=== PATIENT | female | born 1985 | race Caucasian/White ===

== ENCOUNTER 2018-03-22 15:31 | Emergency (ER) | payer OTHER ==
[2018-03-22 17:10] VITALS: PULSE 76; RESP 18; TEMP 99.4
--- NOTE | 2018-03-22 18:27 | ED ---
General Adult HPI - General Chief complaint: ENT Stated complaint: Headache, Congestion, Nauseated, Anxiety Time Seen by Provider: 03/22/18 17:49 Source: patient, RN notes reviewed Mode of arrival: ambulatory Limitations: no limitations - History of Present Illness Initial comments: 32-year-old female presents to the emergency department for a chief complaint of headache 2 days. Patient states she fell twice hitting her head on a wall and a bed rail in the past 2 days. Patient denies dizziness before these falls. Patient denies loss of consciousness after these falls. Patient also complains of nasal congestion for the past 3 years. Patient states she also has left- sided ear pressure which accompanies the congestion. Patient also complains of slight nausea but has not vomited. Patient denies any visual changes. Patient has no other complaints at this time including shortness of breath, chest pain, abdominal pain, nausea or vomiting, headache, or visual changes. - Related Data Home Medications Medication Instructions Recorded Confirmed Cholecalciferol [Vitamin D3] 1,000 unit PO DAILY 03/22/18 03/22/18 Ibuprofen [Motrin Ib] 400 mg PO Q6HR PRN 03/22/18 03/22/18 Previous Rx's Medication Instructions Recorded Oxymetazoline 0.05% Nasl [place] 2 spray EA NOSTRIL BID PRN 5 Days 03/22/18 [Afrin 0.05% Nasal [place]] #1 bottle Allergies Allergy/AdvReac Type Severity Reaction Status Date / Time codeine Allergy Nausea & Verified 03/22/18 18:33 Vomiting fexofenadine [From Yeimi] Allergy Hallucinati Verified 03/22/18 18:33 ons latex Allergy Rash/Hives Verified 03/22/18 18:33 loratadine [From Claritin] Allergy Hallucinati Verified 03/22/18 18:33 ons prednisone Allergy Rash/Hives Verified 03/22/18 18:33 Review of Systems ROS Statement: Those systems with pertinent positive or pertinent negative responses have been documented in the HPI. ROS Other: All systems not noted in ROS Statement are negative. Past Medical History Past Medical History: Fibromyalgia, Hyperlipidemia, Osteoarthritis (OA) Additional Past Medical History / Comment(s): bronchitis, History of Any Multi-Drug Resistant Organisms: None Reported Past Surgical History: Section Additional Past Surgical History / Comment(s): laproscopy Past Psychological History: Anxiety, Depression Smoking Status: Never smoker Past Alcohol Use History: Occasional Past Drug Use History: None Reported General Exam Limitations: no limitations General appearance: alert, in no apparent distress Head exam: Present: atraumatic, normocephalic, normal inspection Eye exam: Present: normal appearance, PERRL, EOMI. Absent: scleral icterus, conjunctival injection, nystagmus, periorbital swelling Pupils: Present: normal accommodation ENT exam: Present: normal exam, normal oropharynx, mucous membranes moist, TM's normal bilaterally (Tympanic membranes nonerythematous bilaterally), normal external ear exam Neck exam: Present: normal inspection, full ROM. Absent: tenderness, meningismus, lymphadenopathy Respiratory exam: Present: normal lung sounds bilaterally. Absent: respiratory distress, wheezes, rales, rhonchi, stridor Cardiovascular Exam: Present: regular rate, normal rhythm, normal heart sounds. Absent: systolic murmur, diastolic murmur, rubs, gallop, clicks Back exam: Present: normal inspection, full ROM. Absent: tenderness Neurological exam: Present: alert, oriented X3, CN II-XII intact, other (GCS 15. Upper and lower extremity strength 5 out of 5 bilaterally. Negative arm drift.) Psychiatric exam: Present: normal affect, normal mood, anxious (Patient appears slightly anxious and admits to anxiety.) Skin exam: Present: warm, dry, intact, normal color. Absent: rash Course Vital Signs 03/22/18 17:08 Temperature 99.4 F Pulse Rate 76 Respiratory 18 Rate Blood Pressure 149/95 O2 Sat by Pulse 100 Oximetry Medical Decision Making - Medical Decision Making 32-year-old female presents to the emergency department for a chief complaint of headache 2 days. Patient has fallen twice in the past 2 days. Patient also complains of sinus congestion for the past 3 years. She also has associated left ear pressure. Patient denies any loss of consciousness or dizziness. Patient has been slightly nauseous but has not vomited. Patient was offered a computed tomography scan of the brain. She states she thinks it is necessary. Negative computed tomography scan of the brain. No fractures or acute abnormalities noted in C-spine. Patient will be prescribed a nasal spray. She is to follow up with ENT for this congestion. Patient already has an appointment with ENT in May that she would like to wait for. She refuses another consult. She will return to the emergency department if she has any worsening symptoms. Otherwise she will follow-up with primary care in 1-2 days. Disposition Clinical Impression: Head injury Disposition: HOME SELF-CARE Condition: Good Instructions: Head Injury (ED) Prescriptions: Oxymetazoline 0.05% Nasl [place] [Afrin 0.05% Nasal [place]] 2 spray EA NOSTRIL BID PRN 5 Days #1 bottle PRN Reason: Congestion Is patient prescribed a controlled substance at d/c from ED?: No Referrals: Bunny Liang MD [Primary Care Provider] - 1-2 days Time of Disposition: 19:02
--- NOTE | 2018-03-22 18:35 | CT ---
EXAMINATION TYPE: CT brain angy guillen DATE OF EXAM: 03/22/2018 COMPARISON: NONE HISTORY: AMEZQUITA, Congestion, and anxiety CT DLP: 1691 mGycm Automated exposure control for dose reduction was used. TECHNIQUE: CT scan of the head and cervical spine are performed without contrast. FINDINGS: Ventricles and sulci appear normal. There is no mass effect nor midline shift. There is n o sign of intracranial hemorrhage. The calvarium is intact. There is mild straightening of the cervical vertebra. There is mild spurring posteriorly of the endpl ates at C5-6 C6-7. The posterior elements are intact. There is no evidence of a fracture. There is ap proximate 7 mm spinal stenosis at C5-6 and 6 millimeters spinal stenosis at C6-7. IMPRESSION: Negative CT scan of the brain. Spondylotic changes are moderately severe in the lower cervical spine for the patient's age with post erior disc herniation and calcification and spinal stenosis as above.
[2018-03-22 19:18] VITALS: BP 121/81
== END 2018-03-22 19:18 | disposition home or self-care (01) ==
LOC: EC 15:31
DX: S09.90XA Unspecified injury of head, initial encounter (principal); R40.2412 Glasgow coma scale score 13-15, at arrival to emergency department; R09.81 Nasal congestion; H93.8X2 Other specified disorders of left ear; F41.9 Anxiety disorder, unspecified; Z79.899 Other long term (current) drug therapy; Z88.5 Allergy status to narcotic agent; Z88.8 Allergy status to other drugs, medicaments and biological substances; Z91.040 Latex allergy status; W19.XXXA Unspecified fall, initial encounter
CPT/HCPCS: 70450; 72125; 99284

== ENCOUNTER 2019-04-15 19:07 | Emergency (ER) | payer OTHER ==
[2019-04-15] MEDS ORDERED: KETOROLAC 30 MG/ML 1 ML VIAL IVP STA ×2 (20:19→22:03)
[2019-04-15] MEDS ORDERED: ONDANSETRON 4 MG/2 ML VIAL IVP STA (20:20)
[2019-04-15] MEDS ORDERED: SODIUM CHLORIDE 0.9% 1,000 ML IV ONE (20:20)
--- NOTE | 2019-04-15 20:22 | ED ---
Headache HPI - General Mode of arrival: wheelchair Limitations: no limitations <Vicki Paz - Last Filed: 04/15/19 23:27> <Stephanie Carlson - Last Filed: 04/16/19 22:23> - General Chief Complaint: Headache Stated Complaint: WEAKNESS, MIGRAINE, VOMITING Time Seen by Provider: 04/15/19 19:56 - History of Present Illness Initial Comments: 33-year-old female presenting today for chief complaint of migraine. Patient states she struggles with migraines chronically. She states it began in her neck and moved towards the frontal region of her head. She states she was has a stuffy nose and has photophobia when she expresses ease migraines. Patient states this all began at 5 PM she denies this being the worse headache of her life. Patient denies any fever or chills night sweats or upper respiratory symptoms. Patient states that her migraines cause nausea and vomiting. She states she has had a couple episodes since the onset. Patient denies any trauma to the head or neck. Patient states she did have a cervical fusion in November. Since that she has been having migraines frequently since. She states that she follows neurology frequently. Patient states that her last migraine was last week a total of 3. Patient denies any diplopia or visual changes dizziness weakness or sensation deficits. Remaining ROS (-). Patient states that toradol and zofran usually help. Patient appears uncomfortable on arrival, however nontoxic. VS WNL. (Vicki Paz) - Related Data Home Medications Medication Instructions Recorded Confirmed Cholecalciferol [Vitamin D3] 1,000 unit PO DAILY 03/22/18 03/22/18 Ibuprofen [Motrin Ib] 400 mg PO Q6HR PRN 03/22/18 03/22/18 Previous Rx's Medication Instructions Recorded Oxymetazoline 0.05% Nasl [place] 2 spray EA NOSTRIL BID PRN 5 Days 03/22/18 [Afrin 0.05% Nasal [place]] #1 bottle Allergies Allergy/AdvReac Type Severity Reaction Status Date / Time codeine Allergy Nausea & Verified 03/22/18 18:33 Vomiting fexofenadine [From Yeimi] Allergy Hallucinati Verified 03/22/18 18:33 ons latex Allergy Rash/Hives Verified 03/22/18 18:33 loratadine [From Claritin] Allergy Hallucinati Verified 03/22/18 18:33 ons prednisone Allergy Rash/Hives Verified 03/22/18 18:33 Review of Systems ROS Other: All systems not noted in ROS Statement are negative. <Vicki Paz Jessica - Last Filed: 04/15/19 23:27> ROS Other: All systems not noted in ROS Statement are negative. <Stephanie Carlson Morenita - Last Filed: 04/16/19 22:23> ROS Statement: Those systems with pertinent positive or pertinent negative responses have been documented in the HPI. Past Medical History Past Medical History: Fibromyalgia, Hyperlipidemia, Osteoarthritis (OA) Additional Past Medical History / Comment(s): bronchitis, History of Any Multi-Drug Resistant Organisms: None Reported Past Surgical History: Section Additional Past Surgical History / Comment(s): laproscopy Past Psychological History: Anxiety, Depression Smoking Status: Never smoker Past Alcohol Use History: Occasional Past Drug Use History: None Reported <Vicki Paz Jessica - Last Filed: 04/15/19 23:27> General Exam Limitations: no limitations <Vicki Paz Jessica - Last Filed: 04/15/19 23:27> - General Exam Comments Initial Comments: General: The patient is awake and alert, in no distress, and does not appear acutely ill. Eye: +3 mm pupils are equal, round and reactive to light, extra-ocular movements are intact. No nystagmus. There is normal conjunctiva bilaterally. No signs of icterus. Ears, nose, mouth and throat: There are moist mucous membranes and no oral lesions. Neck: The neck is supple, there is no tenderness or JVD. Cardiovascular: There is a regular rate and rhythm. No murmur, rub or gallop is appreciated. Respiratory: Lungs are clear to auscultation, respirations are non-labored, breath sounds are equal. No wheezes, stridor, rales, or rhonchi. Musculoskeletal: Normal ROM, no tenderness. Strength 5/5. Sensation intact. Pulses equal bilaterally 2+. Neurological: A&O x 3. CN II-XII intact, memory intact to immediately, intermediate and fpc recall. Able to follow simple verbal. Able to name a common object. High quality, labial (pa) and lingual (la) speech. Low quality posterior pharynx/larynx (ga) voice sounds. Able to express general knowledge. No hemineglect or inattention noted. Finger agnosia (-) and spatially oriented. . Light touch and temperature sensation present over the face, chest, abdomen, back, UE bilaterally, and LE bilaterally. Able to localize point during point localization b/l and extinction. No visible bulk atrophy, hypertrophy, fasciculations, or myoclonus of the UE or LE b/l. Full PROM in UE and LE b/l. Bilateral muscle strength 5/5 for the following muscles: deltoid, biceps, triceps, brachioradialis, wrist extensors/flexor, hip flexor, hip abductors/adductors, hamstrings, quadriceps, feet dorsiflexors/plantar flexors. Finger to nose, finger to the examiners finger, and heel to banda coordinated and accurate b/l. Coordinated and even demonstration of hand flip, finger to thumb, and toe tap b/l. (-) pronator drift. No nuchal rigidity. Skin: Skin is warm and dry and no rashes or lesions are noted. Psychiatric: Cooperative, appropriate mood & affect, normal judgment. (Vicki Paz) Course Vital Signs 04/15/19 04/15/19 19:48 22:52 Temperature 98.5 F 98.3 F Pulse Rate 79 82 Respiratory 22 18 Rate Blood Pressure 125/87 142/70 O2 Sat by Pulse 95 98 Oximetry Medical Decision Making <Vicki Paz - Last Filed: 04/15/19 23:27> <Stephanie Carlson - Last Filed: 04/16/19 22:23> - Medical Decision Making 33-year-old female history of chronic migraines presents today for chief complaint of headache. She states this is very typical of her chronic migraines. Patient is no focal neurological deficits on examination. Patient initially wanted to try norco. Minimal relief. Near complete resolution per patient with toradol Patient requesting discharge. Discussed the case maintained provider Dr. Carlson at this time we feel patient is stable for discharge with primary follow-up in 1-2 days and outpatient neurology follow-up as scheduled. Return parameters were discussed at length the patient who verbalized understanding. Patient was discharged apparently well (Vicki Paz) I was available for consultation in the emergency department. The history and physical exam were done by the midlevel provider. I was consulted for this patient's care. I reviewed the case with the midlevel provider and based on their presentation of the patient, I agree with the assessment, medical decision making and plan of care as documented. Chart was dictated using [employer] dictation software. Attempts were made to correct any dictation errors however some typographical errors may persist. (Stephanie Carlson) Disposition Is patient prescribed a controlled substance at d/c from ED?: No Time of Disposition: 22:54 <Vicki Paz - Last Filed: 04/15/19 23:27> Is patient prescribed a controlled substance at d/c from ED?: No <Stephanie Carlson - Last Filed: 04/16/19 22:23> Clinical Impression: Headache Disposition: HOME SELF-CARE Condition: Stable Instructions (If sedation given, give patient instructions): Acute Headache (ED) Additional Instructions: Please use medication as discussed. Please follow-up with family doctor in the next 2 days.. Please return to emergency room if the symptoms increase or worsen or for any other concerns, fever, worsening of headache, weakness, speech changes, visual changes. Referrals: Maximilian Del Valle MD [Primary Care Provider] - 1-2 days
[2019-04-15] MEDS ORDERED: HYDROcodone/APAP 7.5-325MG 1 EACH TAB PO ONE (20:30)
[2019-04-15 22:53] VITALS: BP 142/70; PULSE 82; RESP 18; TEMP 98.3
== END 2019-04-15 22:53 | disposition home or self-care (01) ==
LOC: EC 19:07
DX: R51 Headache (principal); R53.1 Weakness; R11.2 Nausea with vomiting, unspecified; Z86.69 Personal history of other diseases of the nervous system and sense organs; Z88.5 Allergy status to narcotic agent; Z88.8 Allergy status to other drugs, medicaments and biological substances; Z91.040 Latex allergy status; Z53.29 Procedure and treatment not carried out because of patient's decision for other reasons; Z98.1 Arthrodesis status
CPT/HCPCS: 99283; 96374; 96375; 96361; J2405; J1885